=== PATIENT | male | born 1995 | race Caucasian/White ===

== ENCOUNTER 2017-11-11 18:19 | Emergency (ER) | payer OTHER, MEDICAID, SELFPAY ==
[2017-11-11 18:26] VITALS: BP 71/42; PULSE 54; RESP 18; TEMP 36.3; O2SAT 97
--- NOTE | 2017-11-11 18:30 | PC.NURSE ---
PT STATES USED EDIBLE MARIJUANA APPROX 1400 TODAY. APPEARS SLIGHTLY SLEEPY, STATES ALSO SKATEBOARDED 8 MILES TODAY. LOW BP MOST LIKELY RT MARIJUANA AND HEALTHY YOUNG MALE.
--- NOTE | 2017-11-11 18:35 | DI.RAD.S_ITS ---
PROCEDURE: XR ANKLE RT MIN 3V INDICATIONS: SKATEBOARD INJURY TO RIGHT ANKLE, SWELLING LATERAL SIDE TECHNIQUE: 3 views of the ankle were acquired. COMPARISON: None. FINDINGS: Bones: No fractures or dislocations. Ankle mortise is normally aligned. No suspicious bony lesions. Soft tissues: Lateral soft tissue swelling IMPRESSION: No fracture Lateral soft tissue swelling Dictated by: Jamil Bernal M.D. on 11/11/2017 at 19:30 Approved by: Jamil Bernal M.D. on 11/11/2017 at 19:31
--- NOTE | 2017-11-11 19:46 | ED_ITS ---
HPI - Extremity Injury (Lower) <Itzel Rothman PA-C - Last Filed: 11/11/17 22:21> General Chief Complaint: Extremity Injury, Lower Stated Complaint: RT ANKLE INJURY,POSS BROKEN Time Seen by Provider: 11/11/17 19:45 Source: patient Mode of arrival: wheelchair Limitations: no limitations History of Present Illness HPI Narrative: This healthy 22-year-old male states that he went up a ramp on his skateboard, his heel hit the ground and the board pushed into his ankle and twisted it sideways. He describes it rolling with the ankle deviated outward/ everted. He has had pain in the lateral ankle since and noted swelling. He does not have pain in the foot or lower extremity elsewhere. Not able to bear weight secondary to tenderness. He denies any head contusion or any other injury. Denies chest or abdominal pain. Related Data Allergies Allergy/AdvReac Type Severity Reaction Status Date / Time No Known Drug Allergies Allergy Verified 11/11/17 18:45 Review of Systems <Itzel Rothman PA-C - Last Filed: 11/11/17 22:21> Review of Systems All systems reviewed & are unremarkable except as noted in HPI and below Exam <Itzel Rothman PA-C - Last Filed: 11/11/17 22:21> Narrative Exam Narrative: GENERAL APPEARANCE: Patient sitting comfortably, in no distress. LUNGS: Clear to auscultation bilaterally. HEART: Rate and rhythm regular without murmur, normal S1 and S2, no S3 or S4. MUSCULOSKELETAL: Right ankle there is moderate effusion around the lateral malleolus, no other effusion noted over the lower extremity joints. He is tender especially inferior and anterior to the malleolus. He has full range of motion at the knee without tenderness. Normal range of motion of the right foot toes and able to flex and extend the right ankle. Achilles is intact by palpation. He has reduced lateral and medial ankle deviation on the right secondary to tenderness, no obvious laxity. NEUROVASCULAR: Right foot is warm and pink with brisk cap refill, sensation grossly intact Initial Vital Signs Initial Vital Signs: Vital Signs Temperature 97.4 F L 11/11/17 18:26 Pulse Rate 54 L 11/11/17 18:26 Respiratory Rate 18 11/11/17 18:26 Blood Pressure 71/42 L 11/11/17 18:26 Pulse Oximetry 97 11/11/17 18:26 <Jason Howard MD - Last Filed: 11/12/17 03:15> Initial Vital Signs Initial Vital Signs: Vital Signs Temperature 97.4 F L 11/11/17 18:26 Pulse Rate 54 L 11/11/17 18:26 Respiratory Rate 18 11/11/17 18:26 Blood Pressure 71/42 L 11/11/17 18:26 Pulse Oximetry 97 11/11/17 18:26 Course <Itzel Rothman PA-C - Last Filed: 11/11/17 22:21> Orders Ordered: ED Orders 11/11/17 18:35 XR ankle RT min 3V Stat Discontinued Medications Cefazolin Sodium (Keflex) 1 bottle MISC SEEINSTR ONE Stop: 11/11/17 21:10 Ibuprofen (Advil) 800 mg PO NOW ONE Stop: 11/11/17 20:02 Last Admin: 11/11/17 20:18 Dose: 800 mg Prednisone (Deltasone 20 Mg Prepack) 1 bottle MISC SEEINSTR ONE Stop: 11/11/17 21:10 Vital Signs - 8 hr 11/11/17 19:58 11/11/17 21:04 Temperature 97.7 F Pulse Rate 74 Respiratory Rate 22 Blood Pressure 108/58 L Blood Pressure [Left Arm] 100/59 L Pulse Oximetry 99 <Jason Howard MD - Last Filed: 11/12/17 03:15> Orders Ordered: ED Orders 11/11/17 18:35 XR ankle RT min 3V Stat Discontinued Medications Cefazolin Sodium (Keflex) 1 bottle MISC SEEINSTR ONE Stop: 11/11/17 21:10 Ibuprofen (Advil) 800 mg PO NOW ONE Stop: 11/11/17 20:02 Last Admin: 11/11/17 20:18 Dose: 800 mg Prednisone (Deltasone 20 Mg Prepack) 1 bottle MISC SEEINSTR ONE Stop: 11/11/17 21:10 Vital Signs - 8 hr 11/11/17 19:58 11/11/17 21:04 Temperature 97.7 F Pulse Rate 74 Respiratory Rate 22 Blood Pressure 108/58 L Blood Pressure [Left Arm] 100/59 L Pulse Oximetry 99 MDM - Extremity Injury (Lower) <Itzel Rotmhan PA-C - Last Filed: 11/11/17 22:21> Imaging Data extremity: Attestation: I personally reviewed and interpreted this imaging study as follows: Radiologist's impression: View Report History [address] [address] XRay Report Signed Patient: Iglesia Galicia MR#: [id number] : 1995 Acct:[id number] Age/Sex: 22 / M Date of Service: 11/11/17 Loc: ED Accession Number: [id number] Procedure: XR ankle RT min 3V Ordering Provider: Jason Howard M.D. PROCEDURE: XR ANKLE RT MIN 3V INDICATIONS: SKATEBOARD INJURY TO RIGHT ANKLE, SWELLING LATERAL SIDE TECHNIQUE: 3 views of the ankle were acquired. COMPARISON: None. FINDINGS: Bones: No fractures or dislocations. Ankle mortise is normally aligned. No suspicious bony lesions. Soft tissues: Lateral soft tissue swelling IMPRESSION: No fracture Lateral soft tissue swelling Dictated by: Jamil Bernal M.D. on 11/11/2017 at 19:30 Approved by: Jamil Bernal M.D. on 11/11/2017 at 19:31 Discharge Plan Departure Patient Disposition: Home, Self-Care Clinical Impression: Right ankle sprain Discharge Date/Time: 11/11/17 21:06 Interventions: ED Discharge Assessment Last Done: 11/11/17 21:04 Instructions: DI for Ankle Sprain Activity Restrictions/Additional Instructions: Take ibuprofen 600-800 mg every 8 hr as needed for pain and swelling. Use ice this evening and keep your ankle elevated and rest it tonight and tomorrow. Gentle walking is okay as tolerated but use the ankle splint we gave you. You should follow up with your PCP in about a week for recheck especially if this is not significantly improved as you may need repeat x-rays or further treatment Referrals: [facility] [Provider Group] <Jason Howard MD - Last Filed: 11/12/17 03:15> Cosign ED Attending Yasmany Attestation: I was available in the ER department for consultation and assistance if necessary. I agree with the content of the note and the treatment plan.
[2017-11-11 19:58] VITALS: BP 100/59
[2017-11-11] MEDS: IBUPROFEN 400 MG TABLET 800 MG PO (20:18)
[2017-11-11 21:04] VITALS: BP 108/58; PULSE 74; RESP 22; TEMP 36.5; O2SAT 99
== END 2017-11-11 21:06 | disposition home or self-care (01) ==
PROVIDERS: Emergency Provider Internal Medicine
DX: S93.401A Sprain of unspecified ligament of right ankle, initial encounter (principal); V00.131A Fall from skateboard, initial encounter; Y93.51 Activity, roller skating (inline) and skateboarding
CPT/HCPCS: 73610; 99282; 99283

== ENCOUNTER 2019-12-07 20:10 | Emergency (ER) | payer OTHER, MEDICAID, SELFPAY ==
[2019-12-07 20:16] VITALS: BP 137/86; PULSE 64; RESP 18; TEMP 36.9; O2SAT 97; BMI 18.8
--- NOTE | 2019-12-07 20:59 | PC.NURSE ---
Pts exam is unremarkable
== END 2019-12-07 22:45 | disposition left against medical advice (07) ==
PROVIDERS: Emergency Provider Emergency Medicine
CPT/HCPCS: 99281

== ENCOUNTER 2021-09-27 22:08 | Emergency (ER) | payer OTHER, MEDICAID, SELFPAY ==
[2021-09-27 22:20] VITALS: BP 108/71; PULSE 54; RESP 16; TEMP 36.4; O2SAT 100
--- NOTE | 2021-09-27 22:20 | ED_ITS ---
HPI - Syncope General Chief Complaint: Syncope Stated Complaint: syncope , GLF landed left side Time Seen by Provider: 09/27/21 22:11 History of Present Illness HPI narrative: 26-year-old male smoker without significant or chronic medical problems presents for evaluation of a syncopal episode that was just prior to arrival. He is here in Labor and delivery and expecting a child shortly. He states he is under significant stress lately and has not been sleeping as much. He has been back and forth from the [facility] and has taken as many as 3 ferry rides per day over the week. He denies any alcohol or street drugs. He states he has been trying to eat or drink but likely isn't getting enough on board. He states that the room was also quite hot and he began feeling ill, went to the bathroom and felt lightheaded. He states his vision briefly blacked out though he did not lose c onsciousness he fell to the floor. He did strike the back of his head but has little other complaint. He has had no vomiting, is awake and alert, denies other significant injury and does not take blood thinners. Related Data Allergies Allergy/AdvReac Type Severity Reaction Status Date / Time No Known Drug Allergies Allergy Verified 12/07/19 20:16 Review of Systems Review of Systems Narrative: GENERAL: Denies chills, fatigue, malaise, fever, sweats. HEENT: Denies sinus pain, ear pain, sore throat, difficulty swallowing, dizziness. RESPIRATORY: Denies dyspnea, cough, wheezing, hemoptysis, sputum. CARDIOVASCULAR: See HPI GASTROINTESTINAL: Denies nausea, vomiting, abdominal pain, diarrhea, constipation, melena. : Denies dysuria, frequency, incontinence, hematuria, urinary retention. MUSCULOSKELETAL: see HPI SKIN: Denies rash, skin lesions, or other NEUROLOGIC: Denies weakness, headache, numbness, change in speech, confusion, seizures, incoordination. PSYCHIATRIC: No concerning psychosocial issues. 12 point review of systems is negative except for those stated above Patient History Medical History Healthy adult male Surgical History History of dental surgery Social History Smoking Status: Current some day smoker Smoking Status: Current some day smoker tobacco type: cigarettes and vaping alcohol intake frequency: a few times a month Substance Use Type: marijuana Exam Narrative Exam Narrative: GENERAL: [26] year old patient appears stated age. Well-developed patient, in mild distress. GCS 15 HEAD: small 0.5cm lacertion on occiput with minimal bleeding, no evidence of foreign body, no evidence of depressed skull fracture. EYES: Pupils equal round and reactive. Extraocular motions intact. No scleral icterus. No injection or drainage. ENT: Nose without bleeding, purulent drainage. Throat without erythema, tonsillar hypertrophy or exudate. Airway patent. NECK: Trachea midline. Non tender CARDIOVASCULAR: Regular rate and rhythm without murmurs, gallops, or rubs. RESPIRATORY: Clear to auscultation. Breath sounds equal bilaterally. No wheezes, rales, or rhonchi. GASTROINTESTINAL: Abdomen soft, non-tender, nondistended. EXTREMITIES: Full but painful ROM of left elbow, no obvious deformity, closed isolated and N/V intact BACK: Nontender without deformity or crepitance. No flank tenderness. NEURO: AOx3. SKIN: No rash or erythema of visible areas Initial Vital Signs Initial Vital Signs: Vital Signs Temperature 97.6 F 09/27/21 22:20 Pulse Rate 54 L 09/27/21 22:20 Respiratory Rate 16 09/27/21 22:20 Blood Pressure 108/71 09/27/21 22:20 Pulse Oximetry 100 09/27/21 22:20 Procedures Laceration Repair Laceration 1: Site: scalp Size (cm): 0.5 Description: linear Depth: simple, single layer Pre-repair: wound explored Skin layer closed with: michael (1 staple) Orthopedic Splinting/Casting Injury #1: Side: left Upper Extremity Injury Location: elbow Upper Extremity Immobilizer: sling/shoulder immobilizer Post splinting neuro exam: intact Post splinting vascular exam: intact Placed by: Nursing Course Orders Ordered: ED Orders 09/27/21 22:23 EKG-12 Lead Stat 09/27/21 22:26 Basic Metabolic Panel Stat Complete Blood Count AUTO DIFF Stat Magnesium Stat 09/27/21 23:17 XR elbow LT min 3V Stat Discontinued Medications Sodium Chloride (Normal Saline 0.9%) 1,000 mls @ 1,000 mls/hr IV BOLUS ONE Stop: 09/27/21 23:19 Last Admin: 09/27/21 22:33 Dose: 1,000 mls/hr Documented by: ATAYLOR Vital Signs Vital signs: Vital Signs - 8 hr 09/27/21 22:20 09/27/21 22:26 09/27/21 22:30 Temperature 97.6 F Pulse Rate 54 L 57 L 50 L Respiratory Rate 16 14 Blood Pressure 108/71 Pulse Oximetry 100 100 100 09/27/21 23:00 Temperature Pulse Rate 61 Respiratory Rate 15 Blood Pressure 107/67 Pulse Oximetry 100 MDM - Syncope Lab Data Result diagrams: 09/27/21 22:26 09/27/21 22:26 Labs: Lab Results 09/27/21 09/27/21 Range/Units 22: 22:26 WBC 11.9 H (4.5-11.0) X10^3/uL RBC 5.00 (4.5-5.9) X10^6/uL Hgb 15.8 (13.5-17.5) g/dL Hct 46.2 (41-53) % MCV 92.3 (80-100) fL MCH 31.6 (26-34) PG MCHC 34.2 (30-36) % RDW 13.1 (11.6-14.8) % Plt Count 174 (150-400) X10^3/uL Neut % (Auto) 56.6 (50-75) % Lymph % (Auto) 33.5 (25-40) % Keith % (Auto) 7.7 (3-14) % Eos % (Auto) 1.3 L (2-4) % Baso % (Auto) 0.9 (0-2) % Neut # (Auto) 6700 (2144-9428) /uL Lymph # (Auto) 4000 (7534-9862) /uL Keith # (Auto) 900 (0-900) /uL Eos # (Auto) 200 (0-450) /uL Baso # (Auto) 100 (0-100) /uL Plt Morphology Comment 1+ large plts RBC Morphology Normal morphology Sodium 138 (137-145) mmol/L Potassium 3.6 (3.4-5.1) mmol/L Chloride 104 (98-107) mmol/L Carbon Dioxide 25 (22-32) mmol/L BUN 15 (9-20) mg/dL Creatinine 1.09 (0.66-1.25) mg/dL Estimated GFR > 60 (>60) mL/min BUN/Creatinine Ratio 13.8 (6-22) Glucose 122 H (70-100) mg/dL Calcium 9.2 (8.4-10.2) mg/dL Magnesium 2.0 (1.6-2.3) mg/dL Imaging Data Extremity x-ray #1: Radiologist's Impression: Launch?Image [address] [address] XRay Report Signed Patient: Iglesia Galicia MR#: [id number] : 1995 Acct:[id number] Age/Sex: 26 / M Date of Service: 09/27/21 Loc: ED Accession Number: [id number] ?? Procedure: XR elbow LT min 3V Ordering Provider: Cortez Hartmann D.O. PROCEDURE:? XR ELBOW LT MIN 3V ? INDICATIONS:? pain after fall ? TECHNIQUE:? 3 views of the elbow were acquired.? ? COMPARISON:? None. ? FINDINGS:? ? Bones:? No fractures or dislocations.? No suspicious bony lesions.? ? Soft tissues:? No elbow joint effusion.? No suspicious soft tissue calcifications.? ? ? IMPRESSION:? ? 1. No fracture or dislocation.? ? ? Dictated by: Mingo Hernandez M.D. on 09/27/2021 at 23:55 ? ? Approved by: Mingo Hernandez M.D. on 09/28/2021 at 0:04 ? MDM Narrative Medical decision making narrative: Patient with reassuring history and physical exam. He had a provoked near syncopal episode, felt it coming was able to largely protect himself before fa lling. There is no indication for head CT, he small laceration is repaired with a single staple. Patient has some pain in his left elbow but very unremarkable exam and normal x-ray. Labs have no significant findings and EKG demonstrates a normal sinus rhythm. Patient is given fluids and observed for about 2 hours, he feels quite well at time of discharge. He has been under significant stress lately and going back and forth to the [facility], not sleeping much, not eating or drinking as much. He had just stood up from a chair and began to feel lightheaded as he walked to the bathroom prior to his episode. Return precautions given and questions answered to his apparent satisfaction Discharge Plan Departure Patient Disposition: Home Clinical Impression: Near syncope Laceration of scalp Qualifiers: Encounter type: initial encounter Qualified Code(s): S01.01XA - Laceration without foreign body of scalp, initial encounter Contusion of elbow, left Qualifiers: Encounter type: initial encounter Qualified Code(s): S50.02XA - Contusion of left elbow, initial encounter Instructions: DI for Syncope in Adults (Fainting) Activity Restrictions/Additional Instructions: *You have been diagnosed with [near syncope with minor scalp laceration and elbow contusion. *What to do: *Please continue to take your regular medications as directed. [ ] New medication prescriptions sent to your pharmacy: [ ] [ ] New medication written as a paper prescription [x ] No new medications given * Please keep the wound clean and dry to the best of your ability. Please monitor for signs of infection such as redness to the skin or increasing pain. Have the sutures/michael removed by your doctor in about 7 days. If you are unable to get into your doctor, we would be happy to remove the sutures/michael in that same timeframe. *If you do not have a primary care provider please contact the [facility] Resource line at [phone]. They will ask some questions about your medical history and help get you set up with a doctor in the community. *Return to Emergency Department if you should have any new, worsening or concerning symptoms, such as [fever greater than 101 F, shaking chills, w orsening pain, persistent vomiting or other bothersome symptoms]
[2021-09-27 22:26] VITALS: PULSE 57; O2SAT 100
[2021-09-27 22:30] VITALS: PULSE 50; RESP 14; O2SAT 100
[2021-09-27] MEDS: SODIUM CHLORIDE 0.9% 1,000 ML 1000 ML IV (22:33)
[2021-09-27 22:42] LABS: Add Manual Diff / Slide Review SLIDE REVIEW; Basophils Absolute Auto 100 /uL (0-100); Basophils Percent Auto 0.9 % (0-2); Eosinophils Absolute Auto 200 /uL (0-450); Eosinophils Percent Auto 1.3 % (2-4); Hematocrit 46.2 % (41-53); Hemoglobin 15.8 g/dL (13.5-17.5); Lymphocytes Absolute Auto 4000 /uL (1100-4500); Lymphocytes Percent Auto 33.5 % (25-40); Mean Corpuscular HGB Conc 34.2 % (30-36); Mean Corpuscular Hemoglobin 31.6 PG (26-34); Mean Corpuscular Volume 92.3 fL (80-100); Monocytes Absolute Auto 900 /uL (0-900); Monocytes Percent Auto 7.7 % (3-14); Neutrophils Absolute Auto 6700 /uL (1500-7000); Neutrophils Percent Auto 56.6 % (50-75); Platelet Count 174 X10^3/uL (150-400); Red Cell Distribution Width 13.1 % (11.6-14.8); White Blood Cell Count 11.9 X10^3/uL (4.5-11.0)
[2021-09-27 22:45] LABS: BUN Creatinine Ratio 13.8 (6-22); Blood Urea Nitrogen 15 mg/dL (9-20); Calcium 9.2 mg/dL (8.4-10.2); Carbon Dioxide 25 mmol/L (22-32); Chloride 104 mmol/L (98-107); Estimated Glomerular Filt Rate > 60 mL/min (>60); Glucose 122 mg/dL (70-100); HEMOLYSIS < 15 (0-50); Potassium 3.6 mmol/L (3.4-5.1); Sodium 138 mmol/L (137-145)
[2021-09-27 23:00] VITALS: BP 107/67; PULSE 61; RESP 15; O2SAT 100
[2021-09-27 23:17] LABS: RBC Morphology Normal Morphology
--- NOTE | 2021-09-27 23:17 | DI.RAD.S_ITS ---
PROCEDURE: XR ELBOW LT MIN 3V INDICATIONS: pain after fall TECHNIQUE: 3 views of the elbow were acquired. COMPARISON: None. FINDINGS: Bones: No fractures or dislocations. No suspicious bony lesions. Soft tissues: No elbow joint effusion. No suspicious soft tissue calcifications. IMPRESSION: 1. No fracture or dislocation. Dictated by: Mingo Hernandez M.D. on 09/27/2021 at 23:55 Approved by: Mingo Hernandez M.D. on 09/28/2021 at 0:04
== END 2021-09-28 00:01 | disposition home or self-care (01) ==
PROVIDERS: Emergency Provider Emergency Medicine
DX: R55 Syncope and collapse (principal); S01.01XA Laceration without foreign body of scalp, initial encounter; S50.02XA Contusion of left elbow, initial encounter
CPT/HCPCS: 12001; 36415; 73080; 80048; 83735; 85025; 93005; 99284